=== PATIENT | male | born 1955 | race Caucasian/White ===

== ENCOUNTER 2022-07-26 12:46 | Outpatient (RCR) | payer OTHER, SELFPAY ==
--- NOTE | 2022-07-27 11:13 | OT.OPOE ---
OT Outpatient Ortho Eval OT Outpatient Ortho Eval* Start: 07/26/22 18:04 Freq: Status: Active Protocol: Document 07/26/22 18:04 CHARLIE (Rec: 07/26/22 18:07 LCN [id number]) E-signed By Crissy Brooks, OTR/L, CLT OT OP Ortho Eval Details Complexity Complexity Low Insurance Information Insurance Information [facility] History/Precautions Current Condition/Medical Diagnosis Referring Provider Dayday [facility]ee Treatment Diagnosis L medial epicondylitis Date of Onset 07/14/22 Other Conditions L sensorineural hearing loss. Many prior bouts of R and L sided epicondylitis. Most recently treated for R lateral 2 years ago with good success with US, iontophoresis, stretching and manual therapy. hemolytic anemia, superficial thrombophlebitis. Atenolol for heart palpitations. 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 [employer] 2 days/ week fitness at [address] 60-90 min 5 days per week. Social History Employment Status Retired Current Occupation manager of financial mostly retired Hobbies working out, playing golf, travelling, spending time with grandchildren Ortho Subjective Subjective Subjective Dex Leger is an active 66 yr old male who has had many bouts of epicondylitis. Pt's recent L elbow symptoms started about 1.5 months ago with pn at 8/10 at medial epicondyle while working out with free weights, notably with UBALDO during extended reach + profiler hand of lat pull down and end ROM scap row and twinges during free weights for biceps/triceps. Also hurts when striking ground/ missing ball during golf shots . Has returned to wearing his counterpressure brace on L side with some support during resisted tasks like fitness, golfing, landscaping/gardening and carrying heavy loads. Will ice when sore, somewhat helpful. Has to stop golf rounds a few holes short. Pain Assessment Pain Present Pain Present Pain Reported Location L medial epicondyle Description Tightness,Radiating,Pressure, Pinching,Pulling,With Movement Intensity 7 Goniometric Comments Goniometric Comments Goniometric Comments All L shoulder, elbow and wrist motions are WNL except springy at end ROM of elbow extension. MMT 4/5, tender with L SH IR ( 4-5/10 pn at medial epicpondyle, triceps insert) and resisted pronation (3-4/pn at medial epicondyle/triceps insert). Hand Pinch/Slubber Hand Strength Hand Right Slubber Hand Strength Position 1 (lbs) 78 Slubber Hand Strength Position 2 (lbs) 74 Lateral Pinch Strength (lbs) 25 Three Point Pinch (lbs) 22 Left Slubber Hand Strength Position 1 (lbs) 65 Slubber Hand Strength Position 2 (lbs) 70 Lateral Pinch Strength (lbs) 22 Three Point Pinch (lbs) 21 Comments Comments Gripping 7/10 pn in pos1, no pn win pos 2. Reduces to 4-5/ 10 with brace on and Upper Extremity Special Tests Elbow Cozens Test Negative Left,Negative Right Ulnar Nerve Froment's Sign Negative Left,Negative Right Upper Extremity Special Tests Comments Comments Tissue texture changes at triceps insert margins, with gritty thickness, sensitive over ulnar groove, spiral line . Dynamic Ulnar nerve testing (-), no numbness or senory changes OT Problems Problems Problems Decreased Strength,Decreased Range of Motion,Pain,Lifting, Gripping Other Problems Opening Containers Assessment Assessment Assessment Given Dex's diagnosis of left medial epicondylitis with tissue texture changes at triceps insert/brachialis margins and ?difficulty with pain, mild ROM and strength loss of L forearm/wrist/elbow impacting heavy level resistance, golfing and lifting, hewould benefit from skilled OT to address these areas. Occupational Therapy Treatment Plan - OP Potential Rehabilitation Potential Excellent Goals Goals In 8 weeks, Dex will demonstrate:? 1) Decreased pn to <2/10 80% of the time with sustained gripping, carrying groceries, striking golf ball/tolerating full rounds and lifting weights safely. 2) I HEP for stretching, gradual strengthening, self mgmt strategies, and use of mindful lifting form. 3) improved L profiler hand strength to 75# with L elbow pain < 1/10 . 4)??Pt to be fit with functional bracing (for CMC, wrist,) and use adaptive strategies to protect joint integrity to support less pain with ADL. Treatment Plan Treatment Plan Evaluation,Edema Control, Iontophoresis,Joint Mobilization,Manual Therapy, Ultrasound,Therapeutic Exercise,Self Care/Home Management,Education Expected Frequency 1-2x Week Expected Duration 6-8 Weeks Comment Summary (Pt with insurance upcoming change-- getting Medicare ) Home Program Home Program Home Program Initiated Home Program Specifics Added new resistance pad to his counter brace, revised wrist extension stretch, and trial of kinesiotaping. Certification Certification I Certify That: Therapy Services Provided, Therapy Plan Established, Therapy Plan Reviewed Recertification Information Recertification Information Initial Certification Date 07/26/22 Recertification Due Date 10/24/22 Provider Signature Shows Agreement With POC & Medical Necessity Physician Comment/Change Comment or Changes Physician NPI Number #
== END 2022-10-31 08:46 | disposition home or self-care (01) ==
PROVIDERS: PCP Internal Medicine; Visit Provider Orthopaedic Surgery
DX: M77.02 Medial epicondylitis, left elbow (principal); H90.42 Sensorineural hearing loss, unilateral, left ear, with unrestricted hearing on the contralateral side; Z51.89 Encounter for other specified aftercare
CPT/HCPCS: 97033; 97140; 97165

== ENCOUNTER 2023-07-31 08:10 | Outpatient (CLI) | payer MEDICARE, BC, SELFPAY ==
--- OUTSIDE RECORDS SUMMARY | 2023-07-31 08:24 | XMS_ITS | Clinical Summary ---
Author Organization [employer] [facility] Address [place], [place] [address] Care Team Providers Care Cardiac Monitor Name Role Phone Sherman Hudson MD Primary Care Provider Allergies No known active allergies Medications Medication Sig Dispensed Refills Start Date End Date Status atenolol (TENORMIN) 25 mg tablet Take 1 tablet by mouth once daily. 0 09/01/2013 Active Active Problems No known active problems Immunizations Name Administration Dates Next Due AMB Influenza, IIV3 (Age >=3 years)(Flu Clinic Only) 10/29/2012,11/16/2008,12/01/2007 AMB Influenza, IIV4 PF (=>6 mos Flulaval,Fluzone Fluarix)(Flu Clinic Only) 12/01/2013 Influenza, IIV4 12/30/2014 Zoster (Zostavax-ZVL, live) 05/26/2013 Social History Tobacco Use Types Packs/Day Years Used Date Smoking Tobacco: Never Smokeless Tobacco: Never Tobacco Cessation:Counseling Given: Yes Alcohol Use Standard Drinks/Week Comments Yes 2.5 (1 standard drink = 0.6 oz p ure alcohol) Sex and Gender Information Value Date Recorded Sex Assigned at Not on file Gender Identity Not on file Sexual Orientation Not on file Obstetrics History Last Filed Vital Signs Vital Sign Reading Time Taken Comments Blood Pressure 142/66 12/25/2015 11:15 AM INSTRUMENT MAKER APPRENTICE Pulse 75 12/25/2015 11:15 AM INSTRUMENT MAKER APPRENTICE Temperature 36.7 ??C (98 ??F) 12/25/2015 8:39 AM INSTRUMENT MAKER APPRENTICE Respiratory Rate 16 12/25/2015 11:15 AM INSTRUMENT MAKER APPRENTICE Oxygen Saturation 97% 12/25/2015 11:15 AM INSTRUMENT MAKER APPRENTICE Inhaled Oxygen Concentration - - Weight 99.5 kg (219 lb 6.4 oz) 04/20/2015 9:12 A M INSTRUMENT MAKER APPRENTICE Height 179 cm (5' 10.47) 04/20/2015 9:12 AM INSTRUMENT MAKER APPRENTICE Body Mass Index 31.06 04/20/2015 9:12 AM INSTRUMENT MAKER APPRENTICE Plan of Treatment Health Maintenance Due Date Last Done Comments Tdap 1968 Depression screening for age 12+ 1969 HIV for age 15-65 1972 Hepatitis C screening for ag e 18-79 09/15/1975 Tetanus booster 1977 Lipids for age 45-75 2002 Zoster (shingles) series for age 50+ (2 of 3) 07/21/2013 05/26/2013 BMI (ht and wt on same day) for age 18+ 04/19/2016 04/20/2015 Pneumococcal series for age 65+ (1 of 1 - PCV) 2022 COVID-19 vaccine series (1 - 2022- season) 2022 Influenza for age 65+ 10/12/2023 12/30/2014 , 12/01/2013, 10/29/2012, Additional history exists Colonoscopy through age 75 12/24/2025 12/25/2015 Procedures Procedure Name Priority Date/Time Associated Diagnosis Comments COLONOSCOPY 12/25/2015 9:28 AM INSTRUMENT MAKER APPRENTICE from Last 3 Months or Most Recently Relevant to Health Maintenance Results * COLONOSCOPY (12/25/2015 9:28 AM INSTRUMENT MAKER APPRENTICE) 12/25/2015 9:28 AM INSTRUMENT MAKER APPRENTICE Narrative 12/25/2015 9:28 AM INSTRUMENT MAKER APPRENTICE Patient Name: Dex Leger ?Procedure Date: 12/25/2015 ? Gender: Male ? Date of : 1955 Admit Type: Ambulatory ? Procedure: ?Colonoscopy Proceduralist: ?Omari Mcdonald [facility] Indications/Pre-Op Diagnosis: Surveillance: Personal history of colonic ?polyps with unknown histology (unable to locate ?pathology results from last colonoscopy less ?than 3 years ago), Last colonoscopy: August 2009 Medications: ?The level of sedation administered was ?moderate, Midazolam 7 mg IV, Fentanyl 150 ?micrograms IV ? Procedure Description: ? The patient had risks, benefits and alternatives explained to and gave ? informed consent. The patient had a stable cardiopulmonary status and ? judged an adequate candidate for conscious sedation. ? The colonoscope was passed through the anus and advanced to the cecum, ? identified by appendiceal orifice and ileocecal valve. The colonoscope ? was passed through the and advanced to. The colonoscopy was performed ? without difficulty. The patient tolerated the procedure well. The ? quality of the bowel preparation was good. ? Complications: ?No immediate complications. Estimated blood ?loss: None. Estimated Blood Loss & Specimen: ? Estimated blood loss was minimal. ? Specimen collected - Yes and sent to Laboratory ? Findings: ? The perianal and digital rectal examinations were normal. ? Scattered medium-mouthed diverticula were found in the sigmoid colon. ? A 3 mm polyp was found in the sigmoid colon. The polyp was sessile. The ? polyp was removed with a cold biopsy forceps. Resection and retrieval ? were complete. ? A 1 mm polyp was found in the sigmoid colon. The polyp was sessile. The ? polyp was removed with a cold biopsy forceps. Resection and retrieval ? were complete. ? The exam was otherwise without abnormality. ? Impressions/Post-Op Diagnosis: ? - Diverticulosis in the sigmoid colon. ? - One 3 mm polyp in the sigmoid colon, removed with a cold biopsy ? forceps. Resected and retrieved. ? - One 1 mm polyp in the sigmoid colon, removed with a cold biopsy ? forceps. Resected and retrieved. ? - The examination was otherwise normal. ? Recommendation: ? - Await pathology results. ? - Repeat colonoscopy in 5 years for surveillance. ? Omari Mcdonald 12/25/2015 10:23:37 AM This report has been signed electronically. Note Initiated On: 12/25/2015 9:28 AM Procedure Note Omari Mcdonald R - 12/25/2015 10:23 AM CST Patient Name: Dex Leger Procedure Date: 12/25/2015 Gender: Male Date of : 1955 Admit Type: Ambulatory Procedure: Colonoscopy Proceduralist: Omari Box [facility] Indications/Pre-Op Diagnosis: Surveillance: Personal history of colonic polyps with unknown histology (unable tolocate pathology results from last colonoscopy less than 3 years ago), Last colonoscopy: August2009 Medications: The level of sedation administered was moderate, Midazolam 7 mg IV, Fentanyl 150 micrograms IV Procedure Description: The patient had risks, benefits and alternatives explained to andgave informed consent. The patient had a stable cardiopulmonary status and judged an adequate candidate for conscious sedation. The colonoscope was passed through the anus and advanced to thececum, identified by appendiceal orifice and ileocecal valve. Thecolonoscope was passed through the and advanced to. The colonoscopy was performed without difficulty. The patient tolerated the procedure well. The quality of the bowel preparation was good. Complications: No immediate complications. Estimated blood loss: None. Estimated Blood Loss & Specimen: Estimated blood loss was minimal. Specimen collected - Yes and sent to Laboratory Findings: The perianal and digital rectal examinations were normal. Scattered medium-mouthed diverticula were found in the sigmoidcolon. A 3 mm polyp was found in the sigmoid colon. The polyp was sessile.The polyp was removed with a cold biopsy forceps. Resection and retrieval were complete. A 1 mm polyp was found in the sigmoid colon. The polyp was sessile.The polyp was removed with a cold biopsy forceps. Resection and retrieval were complete. The exam was otherwise without abnormality. Impressions/Post-Op Diagnosis: - Diverticulosis in the sigmoid colon. - One 3 mm polyp in the sigmoid colon, removed with a cold biopsy forceps. Resected and retrieved. - One 1 mm polyp in the sigmoid colon, removed with a cold biopsy forceps. Resected and retrieved. - The examination was otherwise normal. Recommendation: - Await pathology results. - Repeat colonoscopy in 5 years for surveillance. Omari Mcdonald, 12/25/2015 10:23:37 AM This report has been signed electronically. Note Initiated On: 12/25/2015 9:28 AM Omari Mcdonald MD PROCEDURE ORD from Last 3 Months or Most Recently Relevant to Health Maintenance Advance Directives * Full Code (Latest Code Status on File) Date Activated Date Inactivated Comments 12/25/2015 8:32 AM 12/25/2015 1:32 PM Care Teams Cardiac Monitor Relationship Specialty Start Date End Date Sherman Hudson MD PCP - General Internal Medicine 11/30/13
== END 2023-07-31 08:11 | disposition home or self-care (01) ==
PROVIDERS: PCP Internal Medicine; Visit Provider Internal Medicine
DX: K76.0 Fatty (change of) liver, not elsewhere classified (principal); Z13.220 Encounter for screening for lipoid disorders; Z13.1 Encounter for screening for diabetes mellitus; Z12.5 Encounter for screening for malignant neoplasm of prostate
CPT/HCPCS: 80061; 82947; 84450; 84460; G0103

== ENCOUNTER 2023-10-09 08:27 | Outpatient (CLI) | payer MEDICARE, BC, SELFPAY ==
--- OUTSIDE RECORDS SUMMARY | 2023-10-09 08:31 | XMS_ITS | Clinical Summary ---
Author Organization [employer] [facility] Address [place], [place] [address] Care Team Providers Care Hot Die Picker Name Role Phone Sherman Hudson MD Primary [...] Comments Blood Pressure 142/66 12/25/2015 11:15 AM POULTRY EVISCERATOR Pulse 75 12/25/2015 11:15 AM POULTRY EVISCERATOR Temperature 36.7 ??C (98 ??F) 12/25/2015 8:39 AM POULTRY EVISCERATOR Respiratory Rate 16 12/25/2015 11:15 AM POULTRY EVISCERATOR Oxygen Saturation 97% 12/25/2015 11:15 AM POULTRY EVISCERATOR Inhaled Oxygen Concentration - - Weight 99.5 kg (219 lb 6.4 oz) 04/20/2015 9:12 A M POULTRY EVISCERATOR Height 179 cm (5' 10.47) 04/20/2015 9:12 AM POULTRY EVISCERATOR Body Mass Index 31.06 04/20/2015 9:12 AM POULTRY EVISCERATOR Plan of Treatment Health Maintenance Due Date Last Done Comments Tdap 1968 Depression screening for age 12+ 1969 Hepatitis C screening for ag e 18-79 09/15/1975 Tetanus booster 1977 Lipids for age 45-75 2002 Zoster (shingles) series for age 50+ (2 of 3) 07/21/2013 05/26/2013 BMI (ht and wt on same day) for age 18+ 04/19/2016 04/20/2015 Pneumococcal series for age 65+ (1 of 1 - PCV) 2022 COVID-19 vaccine series (2022-24 season) 2022 Influenza for age 65+ 10/12/2023 12/30/2014 , 12/01/2013, 10/29/2012, Additional history exists Colonoscopy through age 75 12/24/2025 12/25/2015 Procedures Procedure Name Priority Date/Time Associated Diagnosis Comments COLONOSCOPY 12/25/2015 9:28 AM POULTRY EVISCERATOR from Last 3 Months or Most Recently Relevant to Health Maintenance Results * COLONOSCOPY (12/25/2015 9:28 AM POULTRY EVISCERATOR) 12/25/2015 9:28 AM POULTRY EVISCERATOR Narrative 12/25/2015 9:28 AM POULTRY EVISCERATOR Patient Name: Dex Leger ?Procedure Date: 12/25/2015 ? Gender: Male ? Date of : 1955 Admit Type: Ambulatory ? Procedure: ?Colonoscopy Proceduralist: ?Omari Mcdonald [facility] Indications/Pre-Op Diagnosis: Surveillance: Personal history of [...] Type: Ambulatory Procedure: Colonoscopy Proceduralist: Omari Box [facility] Indications/Pre-Op Diagnosis: Surveillance: Personal history of colonic [...] 8:32 AM 12/25/2015 1:32 PM Care Teams Hot Die Picker Relationship Specialty Start Date End Date Sherman Hudson MD PCP - General Internal Medicine 11/30/13
== END 2023-10-09 08:28 | disposition home or self-care (01) ==
PROVIDERS: PCP Internal Medicine; Visit Provider Internal Medicine
DX: R10.9 Unspecified abdominal pain (principal)
CPT/HCPCS: 80053; 83690

== ENCOUNTER 2023-10-16 07:32 | Outpatient (CLI) | payer MEDICARE, BC, SELFPAY ==
--- OUTSIDE RECORDS SUMMARY | 2023-10-16 07:36 | XMS_ITS | Clinical Summary ---
Author Organization [employer] [facility] Address [place], [place] [address] Care Team Providers Care Cash Applications Associate Name Role Phone Sherman Hudson MD Primary [...] Comments Blood Pressure 142/66 12/25/2015 11:15 AM QUALITY TECHNICIAN FIBERGLASS Pulse 75 12/25/2015 11:15 AM QUALITY TECHNICIAN FIBERGLASS Temperature 36.7 ??C (98 ??F) 12/25/2015 8:39 AM QUALITY TECHNICIAN FIBERGLASS Respiratory Rate 16 12/25/2015 11:15 AM QUALITY TECHNICIAN FIBERGLASS Oxygen Saturation 97% 12/25/2015 11:15 AM QUALITY TECHNICIAN FIBERGLASS Inhaled Oxygen Concentration - - Weight 99.5 kg (219 lb 6.4 oz) 04/20/2015 9:12 A M QUALITY TECHNICIAN FIBERGLASS Height 179 cm (5' 10.47) 04/20/2015 9:12 AM QUALITY TECHNICIAN FIBERGLASS Body Mass Index 31.06 04/20/2015 9:12 AM QUALITY TECHNICIAN FIBERGLASS Plan of Treatment Health Maintenance Due Date [...] 1 - PCV) 2022 COVID-19 vaccine series (2022- season) 2023 Influenza for age 65+ 10/12/2023 12/30/2014 , 12/01/2013, 10/29/2012, Additional history exists Colonoscopy through age 75 12/24/2025 12/25/2015 Procedures Procedure Name Priority Date/Time Associated Diagnosis Comments COLONOSCOPY 12/25/2015 9:28 AM QUALITY TECHNICIAN FIBERGLASS from Last 3 Months or Most Recently Relevant to Health Maintenance Results * COLONOSCOPY (12/25/2015 9:28 AM QUALITY TECHNICIAN FIBERGLASS) 12/25/2015 9:28 AM QUALITY TECHNICIAN FIBERGLASS Narrative 12/25/2015 9:28 AM QUALITY TECHNICIAN FIBERGLASS Patient Name: Dex Leger ?Procedure Date: 12/25/2015 ? Gender: Male ? Date of : 1955 Admit Type: Ambulatory ? Procedure: ?Colonoscopy Proceduralist: ?Omari Mcdonald [facility] Indications/Pre-Op Diagnosis: Surveillance: Personal history of [...] Type: Ambulatory Procedure: Colonoscopy Proceduralist: Omari Box [facility] Indications/Pre-Op Diagnosis: Surveillance: Personal history of colonic [...] 8:32 AM 12/25/2015 1:32 PM Care Teams Cash Applications Associate Relationship Specialty Start Date End Date Sherman Hudson MD PCP - General Internal Medicine 11/30/13
--- NOTE | 2023-10-16 08:00 | CRLHL7_ITS ---
For Patients: As a result of the Century Cures Act, medical imaging exams and procedure reports are released immediately into your electronic medical record. You may view this report before your referring provider. If you have questions, please contact your health care provider. INDICATION: 68 year-old male. Abdominal pain. Back pain. Prior appendectomy and cholecystectomy. TECHNIQUE: Contrast-enhanced CT of the abdomen and pelvis. 94 cc nonionic Isovue-370 administered. COMPARISON: Contrast-enhanced CT of the abdomen and pelvis June 20, 2017. FINDINGS: Calcified granuloma right lung base. Calcified right hilar lymph nodes. The included lung bases are otherwise clear. Three tiny hepatic cysts. Stable splenic size. Accessory splenule within the splenic hilus. Normal-appearing pancreas without masses or pancreatic ductal dilatation. Surgically absent gallbladder. Normal adrenal glands. Small renal cysts. No solid renal mass, stone, or hydronephrosis. Scattered vascular calcifications in a normal caliber abdominal aorta and iliac arteries. Normal inferior vena cava. Absent appendix. Few small descending/sigmoid diverticula without diverticulitis. The previously identified inflammatory changes in the left lower quadrant have completely resolved. There is no evidence for bowel obstruction or ileus. No ascites or lymphadenopathy. The urinary bladder, prostate gland, and seminal vesicles are within normal limits. Degenerative disc disease at L5. Slight lumbar curvature convex towards the left. Degenerative narrowing of the hip joints. IMPRESSION: 1. No acute abdominopelvic process identified. 2. Few scattered left marilee colonic/sigmoid diverticula without diverticulitis. 3. Surgically absent gallbladder and appendix. Please note that all CT scans at this facility use dose modulation, iterative reconstruction, and/or weight-based dosing when appropriate to reduce radiation dose to as low as reasonably achievable. Dictated by Javan Boo MD @ 10/16/2023 9:54:37 AM (Electronically Signed)
== END 2023-10-16 07:33 | disposition home or self-care (01) ==
LOC: CT 07:34
PROVIDERS: PCP Internal Medicine; Visit Provider Internal Medicine
DX: R10.9 Unspecified abdominal pain (principal); K57.30 Diverticulosis of large intestine without perforation or abscess without bleeding
CPT/HCPCS: 74177; Q9967

== ENCOUNTER 2024-08-02 08:37 | Outpatient (CLI) | payer MEDICARE, BC, SELFPAY | END 2024-08-02 08:38 | disposition home or self-care (01) | LOC: NFLDREF 14:47 | PROVIDERS: PCP Internal Medicine; Referring Provider Internal Medicine; Visit Provider Internal Medicine | DX: Z87.19 Personal history of other diseases of the digestive system (principal); Z12.5 Encounter for screening for malignant neoplasm of prostate | CPT/HCPCS: 84450; 84460; G0103 ==